=== PATIENT | female | born 1970 | race Caucasian/White ===

== ENCOUNTER 2017-12-03 07:30 | Inpatient (IN) | payer OTHER ==
[~2017-12-03] VITALS: Ht 170.2 cm; Wt 68.2 kg
[2017-12-16] MEDS ORDERED: WATER IV ONE (11:45)
[2017-12-16] MEDS ORDERED: CEFAZOLIN SODIUM IV ONE (11:45)
[2017-12-16] MEDS ORDERED: DEXTROSE 5% IV ONE (11:45)
[2017-12-16] MEDS ORDERED: CeFAZolin 2 GM/DEXTROSE 50 ML IV ONE (12:00)
[2017-12-17] MEDS ORDERED: CeFAZolin 2 GM/DEXTROSE 0 ML IV ONE ×2 (05:39→05:45)
[2017-12-17] MEDS ORDERED: RINGERS SOLUTION,LACTATED 0 ML IV ONE (05:39)
[2017-12-17] MEDS ORDERED: RINGERS SOLUTION,LACTATED 1,000 ML IV ONE ×3 (05:44→06:56)
[2017-12-17] MEDS ORDERED: SODIUM CHLORIDE 0.9% 10 ML ONE (06:56)
[2017-12-17] MEDS ORDERED: BACITRACIN 50,000 UNITS/VIAL ONE (06:56)
[2017-12-17] MEDS ORDERED: SODIUM CHLORIDE 0.9% 250 ML IV ONE (06:56)
[2017-12-17] MEDS ORDERED: GELATIN SPONGE,ABSORBABLE 100 MM TP ONE (06:56)
[2017-12-17] MEDS ORDERED: GUM MASTIC/STORAX/MSAL/ALCOHOL LIQUID 0.67 ML VIAL TP ONE ×2 (06:56→09:08)
[2017-12-17] MEDS ORDERED: THROMBIN, BOVINE 20000 UNITS/VIAL POWDER TP ONE (06:56)
[2017-12-17] MEDS ORDERED: CeFAZolin 2 GM/DEXTROSE 50 ML IV ONE (07:00)
[2017-12-17] MEDS ORDERED: BUPIVACAINE LIPOSOME/PF 1.3%-13.3MG/ML SUSPENSION 20 ML VIAL INJ ONE (07:30)
[2017-12-17] MEDS ORDERED: TRANEXAMIC ACID 1,000 MG in DEXTROSE 5%-WATER 50 ML IV ONE (08:00)
[2017-12-17] MEDS ORDERED: MEPERIDINE HCL/PF 25 MG/0.5 ML AMP IVP PRN (08:00)
[2017-12-17] MEDS ORDERED: HYDROmorphone 2 MG/ML SYRINGE IVP PRN (08:00)
[2017-12-17] MEDS: ACETAMINOPHEN 1000 MG/ISO-OSM 100 ML IV SCH ×2 (08:45→16:20)
[2017-12-17] MEDS ORDERED: ZOLPIDEM TARTRATE 10 MG TABLET PO PRN (08:45)
[2017-12-17] MEDS ORDERED: BUPIVACAINE HCL/PF 0.5% 30 ML VIAL ONE (08:52)
[2017-12-17] MEDS ORDERED: SODIUM CHLORIDE 0.9% 30 ML ONE (08:52)
[2017-12-17] MEDS ORDERED: ALBUMIN HUMAN 5%-12.5GM/250ML 250 ML IV ONE (08:53)
[2017-12-17] MEDS: CYCLOBENZAPRINE HCL 10 MG TABLET PO SCH ×2 (09:00→20:49)
[2017-12-17] MEDS ORDERED: VASOPRESSIN 20 UNITS/ML VIAL ONE (09:08)
[2017-12-17] MEDS ORDERED: PROPOFOL 1000 MG/ISO-OSM 100 ML IV ONE (10:15)
[2017-12-17] MEDS ORDERED: NICOTINE 7 MG/24 HOUR PATCH TD SCH (11:30)
[2017-12-17] MEDS ORDERED: BACITRACIN 28.4 GM OINTMENT TP ONE (12:22)
[2017-12-17] MEDS ORDERED: ACETAMINOPHEN 325 MG TABLET PO PRN (12:45)
[2017-12-17] MEDS ORDERED: MAG HYDROX/AL HYDROX/SIMETH 30 ML SUSP UDCUP PO PRN (12:45)
[2017-12-17] MEDS ORDERED: RINGERS SOLUTION,LACTATED 1,000 ML IV SCH (12:45)
[2017-12-17] MEDS ORDERED: ONDANSETRON HCL 4 MG/2 ML VIAL IVP PRN (12:45)
[2017-12-17] MEDS ORDERED: OXYGEN THERAPY IH SCH (12:45)
[2017-12-17] MEDS ORDERED: FentaNYL CITRATE-PF 100 MCG/2 ML VIAL ONE (13:13)
[2017-12-17] MEDS: FentaNYL CITRATE-PF 100 MCG/2 ML VIAL IVP PRN ×2 (13:14→13:22)
[2017-12-17] MEDS: HYDROmorphone 2 MG/ML SYRINGE IVP PRN ×3 (13:58→21:41)
[2017-12-17 14:06] VITALS: BP 111/69
[2017-12-17] MEDS: OXYGEN THERAPY IH SCH ×2 (15:24→20:00)
[2017-12-17] MEDS: NICOTINE 21 MG/24 HOUR PATCH TD SCH ×2 (15:25→16:20)
[2017-12-17 16:00] VITALS: BP 112/63
[2017-12-17] MEDS: DIAZEPAM 5 MG TABLET PO PRN ×2 (16:20→16:22)
[2017-12-17] MEDS: CeFAZolin 1 GM/DEXTROSE 50 ML IV SCH (18:28)
[2017-12-17 19:42] VITALS: BP 107/67
[2017-12-17] MEDS: DOCUSATE SODIUM 100 MG CAPSULE PO SCH (20:49)
[2017-12-18] MEDS: ACETAMINOPHEN 1000 MG/ISO-OSM 100 ML IV SCH (00:43)
[2017-12-18 00:45] VITALS: BP 110/65
[2017-12-18] MEDS: DIAZEPAM 5 MG TABLET PO PRN ×3 (00:53→19:52)
[2017-12-18] MEDS: CeFAZolin 1 GM/DEXTROSE 50 ML IV SCH (03:14)
[2017-12-18] MEDS: HYDROmorphone 2 MG/ML SYRINGE IVP PRN ×5 (03:18→22:30)
[2017-12-18 03:44] VITALS: BP 111/67
[2017-12-18] MEDS ORDERED: DiphenhydrAMINE HCL 50 MG/ML VIAL IVP PRN (04:00)
[2017-12-18] MEDS ORDERED: ROCURONIUM BROMIDE 10 MG/ML 5 ML VIAL IVP ONE (05:49)
[2017-12-18] MEDS ORDERED: LIDOCAINE HCL/PF 2% 5 ML SYRINGE IVP ONE (05:49)
[2017-12-18] MEDS ORDERED: MIDAZOLAM HCL 2 MG/2 ML VIAL IVP ONE (05:49)
[2017-12-18] MEDS ORDERED: PROPOFOL 1% 20 ML VIAL IVP ONE (05:49)
[2017-12-18] MEDS ORDERED: FentaNYL CITRATE-PF 100 MCG/2 ML VIAL IVP ONE (05:49)
[2017-12-18] MEDS ORDERED: EPHEDrine SULFATE 50 MG/ML VIAL IM ONE (05:49)
[2017-12-18] MEDS ORDERED: SUCCINYLCHOLINE CHLORIDE 20 MG/ML 10 ML VIAL IVP ONE (05:49)
[2017-12-18] MEDS ORDERED: PHENYLEPHRINE HCL 10 MG/ML VIAL IVP ONE (05:49)
[2017-12-18] MEDS ORDERED: KETAMINE HCL 50 MG/ML 10 ML VIAL IVP ONE (05:49)
[2017-12-18] MEDS ORDERED: DEXAMETHASONE SOD PHOS 4 MG/ML VIAL IVP ONE (05:49)
[2017-12-18] MEDS ORDERED: ALBUTEROL SULFATE HFA 90 MCG/PUFF 8 GM INHALER IH ONE (05:49)
[2017-12-18 06:19] LABS: BASOPHILS % (AUTO) 0.5 % (0.0-2.0); HEMATOCRIT 26.2 % (36-46); HEMOGLOBIN 8.9 g/dL (12.0-16.0); LYMPHOCYTES # (AUTO) 1.8 K/uL (1.0-4.8); LYMPHOCYTES % (AUTO) 21.5 % (22.0-44.0); MEAN CORPUSCULAR HEMOGLOBIN 28.9 pg (26.0-34.0); MEAN CORPUSCULAR HGB CONC 34.1 G/dL (31.0-37.0); MEAN CORPUSCULAR VOLUME 85 fL (80-100); MONOCYTES # (AUTO) 0.5 K/uL (0.1-1.0); MONOCYTES % (AUTO) 6.5 % (2.0-9.0); NEUTROPHILS # (AUTO) 5.8 K/uL (1.8-7.7); NEUTROPHILS % (AUTO) 70.5 % (40.0-70.0); PLATELET COUNT (AUTO) 186 K/uL (150-450); RED BLOOD CELL COUNT(AUTO) 3.09 MIL/uL (4.00-5.20); RED CELL DISTRIBUTION WIDTH 16.1 % (11.5-14.5)
[2017-12-18 06:43] LABS: ANION GAP 6 mmol/L (8-16); CALCIUM, TOTAL 7.8 mg/dL (8.8-10.5); CARBON DIOXIDE 27 mmol/L (22-29); CHLORIDE 105 mmol/L (98-107); CREATININE 0.74 mg/dL (0.60-1.30); GLOMERULAR FILTR. RATE CALC > 60 mL/min (>60); GLUCOSE,RANDOM 134 mg/dL (70-110); POTASSIUM 3.7 mmol/L (3.5-5.1); SODIUM SERUM 138 mmol/L (136-145); UREA NITROGEN, BLOOD 10 mg/dL (7-18)
[2017-12-18 07:58] VITALS: BP 113/62
[2017-12-18] MEDS: OXYGEN THERAPY IH SCH (08:00)
[2017-12-18] MEDS: CYCLOBENZAPRINE HCL 10 MG TABLET PO SCH ×2 (08:34→19:52)
[2017-12-18] MEDS: NICOTINE 21 MG/24 HOUR PATCH TD SCH (08:34)
[2017-12-18] MEDS: DOCUSATE SODIUM 100 MG CAPSULE PO SCH ×2 (08:34→19:52)
[2017-12-18] MEDS: OxyCODONE HCL/ACETAMINOPHEN 5-325 MG TABLET PO PRN ×4 (11:11→21:22)
[2017-12-18 11:22] VITALS: BP 99/63
[2017-12-18 15:18] VITALS: BP 110/74
[2017-12-18] MEDS: FERROUS SULFATE 325 MG EC TABLET PO SCH (17:43)
[2017-12-18 20:19] VITALS: BP 116/71
[2017-12-19] MEDS: HYDROmorphone 2 MG/ML SYRINGE IVP PRN ×6 (00:51→19:51)
[2017-12-19] MEDS: OxyCODONE HCL/ACETAMINOPHEN 5-325 MG TABLET PO PRN ×5 (01:28→23:07)
[2017-12-19] MEDS: DIAZEPAM 5 MG TABLET PO PRN ×3 (04:19→19:52)
[2017-12-19 04:43] VITALS: BP 116/87
[2017-12-19 07:08] VITALS: BP 115/66
[2017-12-19] MEDS: DOCUSATE SODIUM 100 MG CAPSULE PO SCH ×2 (08:16→19:52)
[2017-12-19] MEDS: NICOTINE 21 MG/24 HOUR PATCH TD SCH (08:16)
[2017-12-19] MEDS: FERROUS SULFATE 325 MG EC TABLET PO SCH ×3 (08:16→18:06)
[2017-12-19] MEDS: CYCLOBENZAPRINE HCL 10 MG TABLET PO SCH (08:17)
[2017-12-19 11:13] VITALS: BP 114/65
[2017-12-19] MEDS ORDERED: ESCITALOPRAM OXALATE 20 MG TABLET PO ONE (11:15)
[2017-12-19] MEDS ORDERED: BACLOFEN 10 MG TABLET PO SCH ×2 (11:45→16:00)
[2017-12-19] MEDS: GABAPENTIN 100 MG CAPSULE PO SCH ×3 (12:31→19:52)
[2017-12-19] MEDS: HydrOXYzine PAMOATE 25 MG CAPSULE PO SCH (12:31)
[2017-12-19 15:06] VITALS: BP 118/65
[2017-12-19] MEDS ORDERED: GABAPENTIN 100 MG CAPSULE PO SCH (16:00)
[2017-12-19] MEDS: BACLOFEN 10 MG TABLET PO SCH ×2 (17:54→23:07)
[2017-12-19] MEDS: DEXAMETHASONE SOD PHOS 4 MG/ML VIAL IVP SCH ×2 (18:03→23:07)
[2017-12-19 19:44] VITALS: BP 121/68
[2017-12-19] MEDS: OXYGEN THERAPY IH SCH (20:00)
[2017-12-19 23:00] VITALS: BP 126/79
[2017-12-20 02:47] VITALS: BP 130/74
[2017-12-20] MEDS: HYDROmorphone 2 MG/ML SYRINGE IVP PRN ×2 (02:47→05:29)
[2017-12-20] MEDS: DIAZEPAM 5 MG TABLET PO PRN (05:29)
[2017-12-20] MEDS: NICOTINE 21 MG/24 HOUR PATCH TD SCH (08:48)
[2017-12-20] MEDS: DEXAMETHASONE SOD PHOS 4 MG/ML VIAL IVP SCH (08:49)
[2017-12-20] MEDS: HydrOXYzine PAMOATE 25 MG CAPSULE PO SCH (08:49)
[2017-12-20] MEDS: DOCUSATE SODIUM 100 MG CAPSULE PO SCH (08:49)
[2017-12-20] MEDS: FERROUS SULFATE 325 MG EC TABLET PO SCH (08:49)
[2017-12-20 08:50] VITALS: BP 125/75
[2017-12-20] MEDS: BACLOFEN 10 MG TABLET PO SCH (08:50)
[2017-12-20] MEDS: GABAPENTIN 100 MG CAPSULE PO SCH (08:50)
[2017-12-20] MEDS ORDERED: OxyCODONE HCL/ACETAMINOPHEN 10-325 MG TABLET PO PRN (11:45)
[2017-12-20 12:15] VITALS: BP 129/82
== END 2017-12-20 15:00 | disposition home or self-care (01) | DRG 460 ==
LOC: 4E 12-17 05:37
PROVIDERS: ADMIT Neurological Surgery; ATTEND Neurological Surgery
PROC: 0RG7071 Fusion of 2 to 7 Thoracic Vertebral Joints with Autologous Tissue Substitute, Posterior Approach, Posterior Column, Open Approach (ICD-10-PCS; 2017-12-17)
PROC: 0SG0071 Fusion of Lumbar Vertebral Joint with Autologous Tissue Substitute, Posterior Approach, Posterior Column, Open Approach (ICD-10-PCS; 2017-12-17)
PROC: 0RBB0ZZ Excision of Thoracolumbar Vertebral Disc, Open Approach (ICD-10-PCS; 2017-12-17)
PROC: 0RGA071 Fusion of Thoracolumbar Vertebral Joint with Autologous Tissue Substitute, Posterior Approach, Posterior Column, Open Approach (ICD-10-PCS; principal; 2017-12-17 07:30)
DX: M51.05 Intervertebral disc disorders with myelopathy, thoracolumbar region (principal); M51.06 Intervertebral disc disorders with myelopathy, lumbar region; M51.16 Intervertebral disc disorders with radiculopathy, lumbar region; M51.04 Intervertebral disc disorders with myelopathy, thoracic region; F17.200 Nicotine dependence, unspecified, uncomplicated; D64.9 Anemia, unspecified; M40.204 Unspecified kyphosis, thoracic region
CPT/HCPCS: 72128; 86850; 86900; 86901; 86920; 87081; 88300; 97116; 97162; 97165; 97530; 97535; C1713; C9290; G0238; J0131; J0330; J0690; J1100; J1170; J1200; J2250; J2370; J2704; J3010; J3490; J3535; J7050; J7060; J7120; P9041